=== PATIENT | male | born 1950 | race African-American/Black ===

== ENCOUNTER → 2021-12-04 | Day surgery (SDC) | payer MEDICARE ==
[~2021-12-04] VITALS: Ht 180.3 cm; Wt 73.5 kg
[~2021-12-04] MED LIST: LIPITOR 10MG TA10 MG PO; MULTIVITAMIN PO
== END | disposition home or self-care (01) ==
LOC: FAS 07:21
DX: Z12.11 Encounter for screening for malignant neoplasm of colon (principal); D12.3 Benign neoplasm of transverse colon; J30.9 Allergic rhinitis, unspecified; Z87.891 Personal history of nicotine dependence; Z79.899 Other long term (current) drug therapy
CPT/HCPCS: 93005; J2704; J7120